=== PATIENT | male | born 2000 | race Caucasian/White ===

== ENCOUNTER 2019-08-11 20:07 | Emergency (ER) | payer OTHER ==
[2019-08-11 20:19] VITALS: BP 155/99
--- NOTE | 2019-08-11 20:35 | UC ---
Headache HPI - HPI Summary HPI Summary: 19 yo male with constant MEJIA x 10-11 days gradual onset bitemporal pounding worse if he looks down no fever no sinus pressure or pain at time has been a 07/03 currently 01/31 no f/c some mild photophobia no vomiting - History Of Current Complaint Chief Complaint: UCHeadache Stated Complaint: HEADACHE, BLOODY NOSES Time Seen by Provider: 08/11/19 20:24 Hx Obtained From: Patient Onset/Duration: Gradual Onset, Lasting Days Onset Of Symptoms: Gradual Pain Intensity: 2 - 5 at time I saw hime Pain Scale Used: 0-10 Numeric Timing: Constant Character: Throbbing, Pressure Location of Headache: Temporal Aggravating Factor(s): Position Change Allevating Factor(s): Nothing Associated Signs And Symptoms: Positive: Nausea, Neck Pain - a few days ago. Negative: Dizziness, Seizure, Vomiting, Sinus Pressure, Fever, Decreased LOC, Visual Changes - Allergies/Home Medications Allergies/Adverse Reactions: Allergies Allergy/AdvReac Type Severity Reaction Status Date / Time No Known Allergies Allergy Verified 08/11/19 20:15 Home Medications: Home Medications Ibuprofen TAB* [Advil TAB*] 200 mg PO Q6H PRN 08/11/19 [History Confirmed ] PMH/Surg Hx/FS Hx/Imm Hx Previously Healthy: Yes - Surgical History Surgical History: None - Social History Alcohol Use: None Substance Use Type: None Smoking Status (MU): Never Smoked Tobacco Review of Systems All Other Systems Reviewed And Are Negative: Yes Constitutional: Positive: Negative Skin: Positive: Negative Eyes: Positive: Photophobia - mild ENT: Positive: Epistaxis - long hx of nose bleeds...a few recently...has never seen an ENT about them Respiratory: Positive: Negative Cardiovascular: Positive: Negative Gastrointestinal: Positive: Negative Genitourinary: Positive: Negative Motor: Positive: Negative Neurovascular: Positive: Negative Musculoskeletal: Positive: Negative Neurological: Positive: Headache Psychological: Positive: Negative Physical Exam Triage Information Reviewed: Yes Appearance: Well-Appearing, No Pain Distress, Well-Nourished Vital Signs: Initial Vital Signs Temp 98.9 F 08/11/19 20:16 Pulse 65 08/11/19 20:16 Resp 18 08/11/19 20:16 BP 155/99 08/11/19 20:16 Pulse Ox 99 08/11/19 20:16 Vital Signs Reviewed: Yes Eyes: Positive: Conjunctiva Clear, Other: - eomi/perrl ENT: Positive: Hearing grossly normal, Pharynx normal, TMs normal, Uvula midline. Negative: Nasal congestion, Nasal drainage, Tonsillar swelling, Tonsillar exudate, Trismus, Muffled voice, Hoarse voice, Dental tenderness, Sinus tenderness Dental Exam: Normal Neck: Positive: Supple, Nontender, No Lymphadenopathy Respiratory: Positive: Lungs clear, Normal breath sounds, No respiratory distress, No accessory muscle use Cardiovascular: Positive: RRR, No Murmur Abdomen Description: Positive: Nontender, No Organomegaly. Negative: CVA Tenderness (R), CVA Tenderness (L) Bowel Sounds: Positive: Present Musculoskeletal: Positive: ROM Intact, No Edema Neurological: Positive: Alert, Muscle Tone Normal, Other: - GCS15/15, cn 2-12 intact, strenght 5/5, normal gait, brisk and symmetrical reflexes Psychological Exam: Normal Skin Exam: Normal Diagnostics - Radiology No standard instances Radiology Interpretation Completed By: Radiologist Summary of Radiographic Findings: CT Brain: sphenoid and ethmoid sinusitis Headache Course/Dx - Differential Dx/Diagnosis Provider Diagnosis: Acute sphenoidal sinusitis, Elevated BP without diagnosis of hypertension Discharge ED - Sign-Out/Discharge Documenting (check all that apply): Patient Departure All imaging exams completed and their final reports reviewed: Yes - Discharge Plan Condition: Stable Disposition: HOME Prescriptions: Amoxicillin/Clavulanate TAB* [Augmentin TAB 875*] 875 mg PO BID #14 tab Fluticasone NASAL SPRAY 50MCG* [Flonase NASAL SPRAY 50MCG*] 2 spray BOTH NARES BID #1 btl Patient Education Materials: Sinusitis (ED) Referrals: RITA PAULINO [[facility]BUSINESS, APPLICATION, OTHER] - 2 Weeks (BP recheck in 2- 12 weeks) Additional Instructions: warm facial compresses SALINE NASAL SPRAY- 2 sprays each nostril twice daily blow nose then 5 minutes later use the flonase 2 sprays each nostril recheck in one week if not better - Billing Disposition and Condition Condition: STABLE Disposition: Home
[2019-08-11] MEDS ORDERED: Amoxicillin/Clavulanate TAB* 875 MG PO ONE (20:57)
[2019-08-11] MEDS ORDERED: Ibuprofen TAB* 600 MG PO ONE (20:58)
== END 2019-08-11 21:53 | disposition home or self-care (01) ==
LOC: UCCORT 20:07
DX: J01.30 Acute sphenoidal sinusitis, unspecified (principal); R03.0 Elevated blood-pressure reading, without diagnosis of hypertension
CPT/HCPCS: 70450; 99202; A9270-GY; G0463